=== PATIENT | female | born 2000 | race Asian ===

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

== ENCOUNTER 2020-01-04 10:55 | Emergency (ER) | payer OTHER ==
[~2020-01-04] VITALS: Ht 180.3 cm; Wt 71.2 kg
[2020-01-04 11:06] VITALS: TEMP 99.1
[2020-01-04 12:13] LABS: PLATELET COUNT 217 K/uL (152-353)
[2020-01-04 12:32] LABS: POTASSIUM 3.7 mmol/L (3.6-5.2)
[2020-01-04 13:44] VITALS: BP 110/60
== END 2020-01-04 13:50 | disposition home or self-care (01) ==
LOC: ED 10:55
PROVIDERS: Family Medicine
DX: O23.32 Infections of other parts of urinary tract in pregnancy, second trimester (principal); Z3A.16 16 weeks gestation of pregnancy
CPT/HCPCS: 80053; 81000; 84702; 85027; 99283; 99284

== ENCOUNTER 2020-01-09 01:25 | Emergency (ER) | payer OTHER ==
[~2020-01-09] VITALS: Ht 180.3 cm; Wt 71.2 kg
[2020-01-09 02:11] LABS: POTASSIUM 3.8 mmol/L (3.6-5.2)
[2020-01-09 02:15] LABS: PLATELET COUNT 207 K/uL (152-353)
[2020-01-09 02:18] LABS: PARTIAL THROMBOPLASTIN TIME 26.5 SECONDS (24.5-33.6)
[2020-01-09 03:00] VITALS: BP 112/76; TEMP 98.9
== END 2020-01-09 03:02 | disposition home or self-care (01) ==
LOC: ED 01:25
PROVIDERS: Hospitalist
DX: O23.32 Infections of other parts of urinary tract in pregnancy, second trimester (principal); Z3A.17 17 weeks gestation of pregnancy
CPT/HCPCS: 80053; 81000; 84702; 85027; 85610; 85730; 87088; 96365; 99284; J0696